=== PATIENT | female | born 2005 | race Two or more races ===

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

== ENCOUNTER → 2024-09-17 | Outpatient (CLI) | payer OTHER ==
--- NOTE | 2024-09-17 10:48 | US ---
EXAMINATION TYPE: US abdomen complete DATE OF EXAM: 09/17/2024 COMPARISON: US 02/21/2023 CLINICAL INDICATION: Female, 19 years old with history of R94.5 ABNORMAL RESULTS OF LIVER FUNCTION ST UDIES; Abnormal labs TECHNIQUE: Grayscale and color Doppler imaging of the abdomen was performed. FINDINGS: EXAM MEASUREMENTS: Liver Length: 15.1 cm Gallbladder Wall: 0.24 cm CBD: 0.23 cm, color Doppler imaging was utilized to isolate the common bile duct for measurement. 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 Gallbladder: Folds seen. *Unable to properly evaluate GB neck due to gas. Limited - ?Recommend additional modality to evaluate?. Evidence for sonographic Hernandez's sign: No CBD: wnl Spleen: wnl Right Kidney: *Hyperechoic area seen lower pole within cortex: 0.3 x 0.4 x 0.6 cm. Left Kidney: wnl, No hydronephrosis, calculi or masses seen Upper IVC: wnl Abd Aorta: Prox appears normal. Limited visibility of mid aorta- unable to accurately measure. Dist al aorta and iliac arteries were obscured. IMPRESSION: 1. Hepatic steatosis. 2. Limited visualization of the gallbladder. 3. Nonobstructing calculus lower pole right kidney. [facility], , 09/17/2024 10:45 AM
== END | disposition home or self-care (01) ==
LOC: RADUSWWP 09:03
PROVIDERS: ATTEND Family Medicine
DX: N20.0 Calculus of kidney (principal); K76.0 Fatty (change of) liver, not elsewhere classified; R94.5 Abnormal results of liver function studies
CPT/HCPCS: 76700